=== PATIENT | male | born 1975 | race Asian ===

== ENCOUNTER 2019-01-07 13:13 | Outpatient (AMBR) | payer BC, SELFPAY ==
--- NOTE | 2019-01-07 13:34 | PTNOTE_ITS ---
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 When he welds he has to rest to take a break after 1-2 minutes due to pain and weakness. Prior to this pain, he could hold it for 5 minutes at a time. He is not sure how it started. PMH: allergies, smoker Imaging: X-rays with provider Pt goal: less R UE pain in order to work, weld and lift things OH. Objective R elbow AROM: Flexion: full Extension: full TTP: moderate superior to medial epicondyle, distal humerus L shoulder AROM: Strength: FF: 155 deg 4-/5 Abduction: 160 deg 4/5 Erot: 78 deg 4-/5 special testing: Georgie Quang: negative Drop arm: negative Painful arc: negative C/S screen: negative Assessment Pt presents with medial elbow pain that is likely radiating from the shoulder since resisted external rotation provokes pain. He holds electric spot welder in shoulder abduction and internal rotation which is likely irritating R RC. L shoulder is weaker than the R but special testing was negative today. Short Term and Alf Goals 1. Ind with HEP 2. Decreased R elbow TTP from mod to min 3. Hold electric spot welder for 4-5 minutes in a row in order to work 4. Improved L shoulder strength to 4+/5 in all planes of motion Treatment Plan 1. Manual therapy 2. Therex 3. Modalities as indicated , estim, moist heat, ice Frequency and Duration 2x a week for 6 weeks Certification Dates: 01/07/19 to 04/09/19 Office Procedures PT Procedures PT Date of Service: 01/07/19 OP PT Eval Mod Complex 30 minutes: Yes
== END 2019-01-09 23:59 | disposition home or self-care (01) ==
PROVIDERS: PCP Family Medicine; Referring Provider Family Medicine; Visit Provider Family Medicine
DX: M25.521 Pain in right elbow (principal); M25.512 Pain in left shoulder
CPT/HCPCS: 97162

== ENCOUNTER 2019-01-14 17:00 | Outpatient (AMBR) | payer BC, SELFPAY ==
--- NOTE | 2019-01-13 19:06 | PT.ODAYNRPT ---
PT Outpatient Daily Note Date of Service: January 13, 2019 OP Daily Note Visit Reasons: L SHOULDER/R ELBOW Outpatient Physical Therapy Treatment Date: 01/13/19 Subjective: Pt c/o R elbow pain and points to the medial and lateral epicondyles as sites of pain. The L shoulder isn't hurting today. Objective: See F/S for therex MT: STM to medial and lateral epicondyles with GRaston x15' Assessment: Moderate TTP of medial and lateral epicondyles consistent with tendinopathies likely overuse injuries of R elbow. Plan: Continue per POC Length of Time (minutes) of Treatment: 30 Minutes Office Procedures PT Procedures PT Date of Service: 01/13/19 Therapeutic Exercise 15 minutes: Yes Manual Gas Pumping Station Operator 15 minutes: Yes
--- NOTE | 2019-01-14 18:59 | PT.ODAYNRPT ---
PT Outpatient Daily Note Date of Service: January 14, 2019 OP Daily Note Visit Reasons: L SHOULDER/R ELBOW Outpatient Physical Therapy Treatment Date: 01/14/19 Subjective: The L shoulder is hurting today a little and he points to the posterior shoulder Objective: See F/S for therex MT: PPM into L shoulder FF, abduction and 4 way isometric holds x10' Assessment: L shoulder pain consistent with impingment/RC tendinopathy Plan: Continue per POC Length of Time (minutes) of Treatment: 30 Minutes Office Procedures PT Procedures PT Date of Service: 01/13/19 Therapeutic Exercise 15 minutes: Yes Manual Epic Ambulatory Analyst 15 minutes: Yes PT Procedures PT Date of Service: 01/14/19 Therapeutic Exercise 15 minutes: Yes Manual Epic Ambulatory Analyst 15 minutes: Yes
--- NOTE | 2019-02-17 14:15 | PTNOTE_ITS ---
PT Outpatient Daily Note Date of Service: February 06, 2019 OP Daily Note Visit Reasons: right elbow/left shoulder Outpatient Physical Therapy Treatment Date: 02/06/19 Subjective: pt states he has allergies upon visit. he is not working but still has limitations due to pain. Objective: see flow sheet. Assessment: pt c/o pain more of the L shoulder during exercises. pt needs to rest his shoulder often in between reps due to pain. he demonstrates good ROM with OH motion. no compensations noted during exercises but does comment about pain and discomfort. pt tolerated the 3# dumbbell for wrist strengthening in flexion and extension. Plan: continue POC per PT. Length of Time (minutes) of Treatment: 30 Minutes Office Procedures PT Procedures PT Date of Service: 02/06/19 Therapeutic Exercise 30 minutes: Yes MTDD
== END 2019-02-08 23:59 | disposition home or self-care (01) ==
PROVIDERS: PCP Family Medicine; Referring Provider Family Medicine; Visit Provider Family Medicine
DX: M25.521 Pain in right elbow (principal); M25.512 Pain in left shoulder
CPT/HCPCS: 97110; 97140

== ENCOUNTER 2019-02-13 15:30 | Outpatient (AMBR) | payer BC, SELFPAY ==
--- NOTE | 2019-02-10 18:14 | PTNOTE_ITS ---
PT Outpatient Daily Note Date of Service: February 10, 2019 OP Daily Note Visit Reasons: RIGHT ELBOW LEFT SHOULDER Outpatient Physical Therapy Treatment Date: 02/10/19 Subjective: Pt says that he is unable to lift 15lbs out in front of him with the L shoulder Objective: SEe F/S for therex MT: STM to R wrist flexors and medial epicondyle region x10' Assessment: Low tissue irritability of R elbow and L shoulder with therex and manual therapy today. Plan: Continue per POC Length of Time (minutes) of Treatment: 30 Minutes Office Procedures PT Procedures PT Date of Service: 02/10/19 Therapeutic Exercise 15 minutes: Yes Manual Manager Of Applications Development 15 minutes: Yes
--- NOTE | 2019-02-13 16:21 | PTNOTE_ITS ---
PT Outpatient Daily Note Date of Service: February 13, 2019 OP Daily Note Visit Reasons: RIGHT ELBOW LEFT SHOULDER Outpatient Physical Therapy Treatment Date: 02/13/19 Subjective: pt came in a little late. Objective: see flow sheet. Assessment: pt had the sniffles all throughout treatment could be allergies or a cold. pt could not finish one exercise due to muscle fatigue of the L shoulder. he tends to complete all reps with no rest break. although he has muscle fatigue he tends to push himself to complete the exercise. added new exercises in which he did well with just caused more muscle fatigue. no complaints of the wrists but mainly his shoulder was bothering him today. Plan: continue POc per PT. Length of Time (minutes) of Treatment: 30 Minutes Office Procedures PT Procedures PT Date of Service: 02/10/19 Therapeutic Exercise 15 minutes: Yes Manual Enterprise Cloud Architect 15 minutes: Yes PT Procedures PT Date of Service: 02/13/19 Therapeutic Exercise 30 minutes: Yes
== END 2019-03-11 23:59 | disposition home or self-care (01) ==
PROVIDERS: PCP Family Medicine; Referring Provider Family Medicine; Visit Provider Family Medicine
DX: M25.521 Pain in right elbow (principal); M25.512 Pain in left shoulder
CPT/HCPCS: 97110; 97140